=== PATIENT | female | born 1955 | race Caucasian/White ===

== ENCOUNTER 2017-09-12 14:24 | Outpatient (CLI) | payer OTHER | END 2017-09-12 14:25 | disposition home or self-care (01) | LOC: ULT 14:24 | PROVIDERS: ATTEND Internal Medicine Hematology & Oncology | DX: Z51.11 Encounter for antineoplastic chemotherapy (principal); C50.811 Malignant neoplasm of overlapping sites of right female breast; I05.1 Rheumatic mitral insufficiency; I07.1 Rheumatic tricuspid insufficiency; Z79.899 Other long term (current) drug therapy | CPT/HCPCS: 93306 ==

== ENCOUNTER 2018-01-02 12:04 | Outpatient (CLI) | payer MEDICARE | END 2018-01-02 12:05 | disposition home or self-care (01) | LOC: ULT 12:04 | PROVIDERS: ATTEND Internal Medicine Hematology & Oncology | DX: Z51.11 Encounter for antineoplastic chemotherapy (principal); C50.811 Malignant neoplasm of overlapping sites of right female breast; I08.3 Combined rheumatic disorders of mitral, aortic and tricuspid valves; Z79.899 Other long term (current) drug therapy | CPT/HCPCS: 93306 ==

== ENCOUNTER 2018-04-03 09:56 | Outpatient (CLI) | payer OTHER ==
--- NOTE | 2018-04-03 12:10 | CT ---
CT THORAX WITH IV CONTRAST: CT ABDOMEN AND PELVIS WITH IV CONTRAST: 04/03/2018 HISTORY: Inflammatory right breast cancer, post mastectomy. Follow-up evaluation. Bone and liver metastatic disease. COMPARISON: 03/26/2017 Prior studies from [facility] are not available for direct comparison at this time. FINDINGS: THORAX: There are post surgical changes related to a right mastectomy. A left subclavian Mediport c atheter is noted in place with the tip at the level of the distal SVC. There are interstitial and parenchymal opacities seen within the right upper lobe, with pleural-based linear densities and areas of bronchiectasis, likely related to traction bronchiectasis. These find ings are likely attributable to post radiation changes. There is a tiny, 7 mm, nodular density, which is pleural-based, involving the medial aspect of the ri ght lower lobe, which is overall nonspecific, and the margins are not well defined. Continued follow up of this nodule is recommended. No additional pulmonary nodule or mass is seen. The left lung is clear. There is no evidence of lymphadenopathy. Minimal vascular calcifications are seen in the thoracic ao rta. No lytic or sclerotic osseous lesions are visualized. ABDOMEN AND PELVIS: The liver, spleen, pancreas, bilateral adrenal glands, kidneys, abdominal aorta, opacified bowel, urinary bladder, uterus, and adnexal regions demonstrate a normal CT appearance for the patient's age. Colonic diverticulosis is present. There is no free fluid, fluid collection, or lymphadenopathy seen in the abdomen or pelvis. There is a subtle rounded, sclerotic lesion again seen in the S1 vertebral body, stable from prior ex am. No additional lytic or sclerotic osseous lesions are identified. Degenerative changes are seen in the spine. IMPRESSION: 1. Post surgical changes related to right mastectomy. 2. Post radiation changes, right upper lobe and right lung apex, with associated traction bronchiect asis. 3. Small nodular density, posterior medial aspect, right lower lobe. Six month follow-up evaluation is suggested. 4. Stable subtle sclerotic lesion within the midline of the sacrum. No new lytic or sclerotic osseo us lesions are identified. POS: ZE
--- NOTE | 2018-04-03 14:01 | NM ---
NUCLEAR MEDICINE BONE SCAN: HISTORY: Secondary malignant neoplasm of bone. COMPARISON: Nuclear medicine bone scan from 2017. TECHNIQUE: Whole body delayed imaging was obtained after the intravenous administration of 32.9 millicuries of t echnetium 99m MDP. FINDINGS: The kidneys and urinary bladder are visualized. There are mild degenerative changes in the knees. T here is no evidence of osseous metastatic disease. IMPRESSION: No evidence of osseous metastatic disease. POS: ZE
== END 2018-04-03 09:57 | disposition home or self-care (01) ==
LOC: CT 09:56
PROVIDERS: ATTEND Internal Medicine Hematology & Oncology
DX: C50.919 Malignant neoplasm of unspecified site of unspecified female breast (principal); C79.51 Secondary malignant neoplasm of bone; C78.7 Secondary malignant neoplasm of liver and intrahepatic bile duct; J47.9 Bronchiectasis, uncomplicated; M53.3 Sacrococcygeal disorders, not elsewhere classified; J98.4 Other disorders of lung; Z90.11 Acquired absence of right breast and nipple; Z98.890 Other specified postprocedural states
CPT/HCPCS: 71260; 74177; 78306; A9503

== ENCOUNTER 2018-04-05 13:06 | Outpatient (CLI) | payer OTHER | END 2018-04-05 13:07 | disposition home or self-care (01) | LOC: ULT 13:06 | PROVIDERS: ATTEND Internal Medicine Hematology & Oncology | DX: Z51.11 Encounter for antineoplastic chemotherapy (principal); C50.919 Malignant neoplasm of unspecified site of unspecified female breast; I08.3 Combined rheumatic disorders of mitral, aortic and tricuspid valves; Z79.899 Other long term (current) drug therapy | CPT/HCPCS: 93306 ==

== ENCOUNTER 2018-06-18 08:28 | Outpatient (CLI) | payer OTHER | END 2018-06-18 08:29 | disposition home or self-care (01) | LOC: BICMAMMO 08:28 | PROVIDERS: ATTEND Internal Medicine Hematology & Oncology | DX: Z08 Encounter for follow-up examination after completed treatment for malignant neoplasm (principal); Z85.3 Personal history of malignant neoplasm of breast; Z80.3 Family history of malignant neoplasm of breast | CPT/HCPCS: G0279 ==

== ENCOUNTER 2018-08-01 13:05 | Outpatient (CLI) | payer OTHER | END 2018-08-01 13:06 | disposition home or self-care (01) | LOC: ULT 13:05 | PROVIDERS: ATTEND Internal Medicine Hematology & Oncology | DX: Z51.11 Encounter for antineoplastic chemotherapy (principal); C50.811 Malignant neoplasm of overlapping sites of right female breast; I08.3 Combined rheumatic disorders of mitral, aortic and tricuspid valves; Z79.899 Other long term (current) drug therapy | CPT/HCPCS: 93306 ==

== ENCOUNTER 2019-06-26 13:59 | Outpatient (CLI) | payer OTHER ==
--- NOTE | 2019-06-26 14:36 | MMO ---
Left Breast MAMMO Unilat Diag DDI LT+DORIS. CLINICAL HISTORY: Patient is 63 years old and is seen for diagnostic exam. The patient has the following family history of breast cancer: niece and cousin female. The patient has a history of right Mastectomy at age 59 - malignant. VIEWS: The views performed were: left craniocaudal with tomosynthesis; left mediolateral oblique with tomosynthesis; and left mediolateral with tomosynthesis. FILMS COMPARED: The present examination has been compared to a prior imaging study performed at [facility] on 06/18/2018. This study has been interpreted with the assistance of computer-aided detection. MAMMOGRAM FINDINGS: There are scattered fibroglandular densities. There are no suspicious masses, suspicious calcifications, or new areas of architectural distortion. IMPRESSION: THERE IS NO MAMMOGRAPHIC EVIDENCE OF MALIGNANCY. A ROUTINE FOLLOW-UP MAMMOGRAM IN 1 YEAR IS RECOMMENDED. THE RESULTS OF THIS EXAM WERE SENT TO THE PATIENT. ACR BI-RADS Category 1 - Negative MAMMOGRAPHY NOTE: 1. A negative mammogram report should not delay a biopsy if a dominant of clinically suspicious mass is present. 2. Approximately 10% to 15% of breast cancers are not detected by mammography. 3. Adenosis and dense breasts may obscure an underlying neoplasm. Reported by: GRIFFIN OLIVO MD Electonically Signed: [id number]
== END 2019-06-26 14:00 | disposition home or self-care (01) ==
LOC: BICMAMMO 13:59
PROVIDERS: ATTEND Internal Medicine Hematology & Oncology
DX: C50.811 Malignant neoplasm of overlapping sites of right female breast (principal); Z90.11 Acquired absence of right breast and nipple
CPT/HCPCS: G0279

== ENCOUNTER 2020-07-20 13:37 | Outpatient (CLI) | payer OTHER ==
--- NOTE | 2020-07-20 14:01 | MMO ---
Left Breast MAMMO Unilat Diag DDI LT+DORIS. CLINICAL HISTORY: Patient is 64 years old and is seen for diagnostic exam. The patient has the following family history of breast cancer: niece and cousin female. The patient has a history of right Mastectomy at age 59 - malignant. VIEWS: The views performed were: left craniocaudal with tomosynthesis; left mediolateral oblique with tomosynthesis; and left mediolateral with tomosynthesis. FILMS COMPARED: The present examination has been compared to prior imaging studies performed at [facility] on 04/21/2016, 04/25/2017, 06/18/2018 and 06/26/2019. This study has been interpreted with the assistance of computer-aided detection. MAMMOGRAM FINDINGS: There are scattered fibroglandular densities. There are no suspicious masses, suspicious calcifications, or new areas of architectural distortion. IMPRESSION: THERE IS NO MAMMOGRAPHIC EVIDENCE OF MALIGNANCY. A ROUTINE FOLLOW-UP MAMMOGRAM IN 1 YEAR IS RECOMMENDED. THE RESULTS OF THIS EXAM WERE SENT TO THE PATIENT. ACR BI-RADS Category 1 - Negative MAMMOGRAPHY NOTE: 1. A negative mammogram report should not delay a biopsy if a dominant of clinically suspicious mass is present. 2. Approximately 10% to 15% of breast cancers are not detected by mammography. 3. Adenosis and dense breasts may obscure an underlying neoplasm. Reported by: SEAN MCPHERSON MD Electonically Signed: [id number]
== END 2020-07-20 13:38 | disposition home or self-care (01) ==
LOC: BICMAMMO 13:37
PROVIDERS: ATTEND Internal Medicine Hematology & Oncology
DX: Z08 Encounter for follow-up examination after completed treatment for malignant neoplasm (principal); Z85.3 Personal history of malignant neoplasm of breast; Z90.11 Acquired absence of right breast and nipple
CPT/HCPCS: G0279

== ENCOUNTER 2024-08-22 08:30 | Outpatient (CLI) | payer MEDICARE ==
[2024-08-22] MEDS ORDERED: Iopamidol 370 76% 100 ML VIAL ONE (15:21)
== END 2024-08-22 08:31 | disposition home or self-care (01) ==
LOC: BICCT 08:30
PROVIDERS: ATTEND Internal Medicine Hematology & Oncology
DX: C50.811 Malignant neoplasm of overlapping sites of right female breast (principal); D50.8 Other iron deficiency anemias; R11.2 Nausea with vomiting, unspecified
CPT/HCPCS: 36415; 71260; 74177; 82565; Q9967

== ENCOUNTER 2025-05-20 11:02 | Outpatient (CLI) | payer MEDICARE | END 2025-05-20 11:03 | disposition home or self-care (01) | LOC: SCSBT 11:02 | PROVIDERS: ATTEND Student in an Organized Health Care Education/Training Program | DX: Z78.0 Asymptomatic menopausal state (principal); M85.89 Other specified disorders of bone density and structure, multiple sites | CPT/HCPCS: 77080 ==